=== PATIENT | female | born 1990 | race Hispanic/Latino ===

== ENCOUNTER 2018-11-13 21:07 | Day surgery (SDC) | payer OTHER ==
[2018-11-13 21:39] VITALS: BP 133/76; TEMP 98.7; BMI 33.2
--- NOTE | 2018-11-13 21:59 | PDOC.LDHP ---
Labor and Delivery H&P HPI: Patient of Dr Scott Known twins EGA 31 weeks 34 days CC: cramping Time: 2200 Location: Triage 27 yo x 1 in past with known twins, here for pelvic cramping. No real CTX [facility], no VB, no recent sex x 2 months. Good FM x 2. No recent trauma. Review of systems: complete ROS completed and as per HPI Current gestational age (weeks): 31 (3 days) Dating criteria: last menstrual period Grav: 2 Para: 1 OB History Details: x 1 in past with HX PIH, no HX PTB Current complications: other (Twins) Abnormal US findings: No Current medications: pre- vitamins Previous surgical history: none Allergies/Adverse Reactions: Allergies Allergy/AdvReac Type Severity Reaction Status Date / Time No Known Allergies Allergy Verified 03/17/13 13:12 - Physical Exam Vital signs reviewed and normal: yes (98.7 92 18 133/76) General: NAD Heart: RRR Lungs: CTAB Abdomen: gravid (Twins) FHT: category 1 (X2, 130-150s) [place] contractions every: irritability but no CTX - Assessment Twins at 31 weeks threatened PTL; no prior HX PTB or CS - Plan Plan: observation in L&D (I have ordered: 1. FFN 2. CX length 3. IVF hydration Dr Scott not available. Observe for now.)
[2018-11-13] MEDS ORDERED: Lactated Ringer's 500 ML IV SCH (22:15)
[2018-11-13 22:42] LABS: Fetal Fibronectin Negative (Negative)
[2018-11-13 22:43] LABS: FFN Internal QC Analyzer PASS (PASS); FFN Internal QC Cassette PASS (PASS)
--- NOTE | 2018-11-13 23:05 | PDOC.EVN ---
Event Note - Event Note Event Note: Follow up: CX length 3.5cm (vaginal) FFN was negative OK for outpatient care
--- NOTE | 2018-11-14 07:32 | ULT ---
TRANSVAGINAL PELVIC ULTRASOUND: INDICATION: Low abdominal pain, evaluation of cervical length. FINDINGS: Limited sonographic imaging performed to evaluate cervical length which reveals a cervix ranging betw een 3.5 and 4 cm in length. There is no sonographic evidence of funneling and the internal os mainta ins a closed morphology. IMPRESSION: Cervical length of a range of 3.5 to 4 cm. POS: NWK
== END 2018-11-13 23:44 | disposition home or self-care (01) ==
LOC: L&D/OP 21:07
PROVIDERS: ATTEND Obstetrics & Gynecology
DX: O99.89 Other specified diseases and conditions complicating pregnancy, childbirth and the puerperium (principal); R10.2 Pelvic and perineal pain; O30.003 Twin pregnancy, unspecified number of placenta and unspecified number of amniotic sacs, third trimester; Z3A.31 31 weeks gestation of pregnancy; Z79.899 Other long term (current) drug therapy
CPT/HCPCS: 82731; 96360; 96361; 99283

== ENCOUNTER 2018-12-15 11:52 | Inpatient (IN) | payer OTHER ==
[2018-12-15] MEDS ORDERED: Ondansetron PF 4 MG/2 ML Vial IVP PRN ×4 (12:56→22:58)
[2018-12-15] MEDS ORDERED: Promethazine HCl 25 MG/ML VIAL IM PRN ×4 (12:56→22:58)
[2018-12-15] MEDS ORDERED: CEFAZOLIN 2 GM in Premix Bag 1 BAG IVPB SCH (13:00)
[2018-12-15] MEDS ORDERED: Bicitra 30 ML UDCUP PO SCH (13:00)
--- NOTE | 2018-12-15 13:00 | PDOC.LDHP ---
Labor and Delivery H&P Chief complaint: contractions HPI: 27 y/o at 36 and 0/7 weeks, presents with DI/DI Twins in early labor. GBS neg. Cervix is 4+cm dilated. NPO x 7 hours now. U/S today shows VX/BR presentation. Will proceed to C/S later today. Current gestational age (weeks): 36 Due date: 01/12/19 (40w) Grav: 2 Para: 1 Current complications: di/di twins Abnormal US findings: No Current medications: pre-sherita vitamins Allergies/Adverse Reactions: Allergies Allergy/AdvReac Type Severity Reaction Status Date / Time No Known Allergies Allergy Verified 03/17/13 13:12 Social history: none - Physical Exam Vital signs reviewed and normal: yes General: NAD, resting, breathing through contractions Heart: RRR Lungs: nonlabored breathing Abdomen: gravid Extremeties: trace edema FHT: category 1 - Vaginal Exam cm dilated: 4 Effacement: 75% Station: -2 - Assessment DI/DI Twins in labor at 36 weeks - Plan Plan: admit to L&D, to OR for section
[2018-12-15 13:49] VITALS: BMI 37.8
[2018-12-15] MEDS: Lactated Ringer's 1,000 ML IV SCH ×2 (14:05→17:02)
[2018-12-15 15:16] LABS: Hemoglobin 10.8 g/dL (12.0-16.0); Mean Corpuscular HGB CONC 33.5 g/dL (32.0-36.0); Mean Corpuscular Hemoglobin 28.7 pg (27.0-31.0); Mean Corpuscular Volume 85.7 fL (78.0-98.0); Mean Platelet Volume 7.6 fL (7.4-10.4); Platelet Count 242 thou/uL (130-400); RBC Distribution Width 19.9 % (11.5-14.5); Red Blood Cell (RBC) Count 3.74 mill/uL (4.20-5.40); White Blood Cell (WBC) Count 5.8 thou/uL (4.8-10.8)
[2018-12-15 15:52] LABS: ALT (SGPT) 20 U/L (8-55); AST (SGOT) 19 U/L (5-34); Albumin 3.2 g/dL (3.5-5.0); Alkaline Phosphatase 481 U/L (40-150); Anion Gap 18 mmol/L (10-20); BUN (Urea Nitrogen) 10 mg/dL (7.0-18.7); Bilirubin, Total 0.4 mg/dL (0.2-1.2); Calc. Creatinine Clearance 199 mL/min (70-130); Calcium 9.1 mg/dL (7.8-10.44); Carbon Dioxide 20 mmol/L (22-29); Chloride 104 mmol/L (98-107); Estimated GFR-MDRD Greater than 90; Globulin 2.6 g/dL (2.4-3.5); Glucose 67 mg/dL (70-105); Potassium 4.5 mmol/L (3.5-5.1); Protein, Total 5.8 g/dL (6.0-8.3); Sodium 137 mmol/L (136-145)
[2018-12-15 15:53] LABS: Syphilis Antibody Nonreactive (Nonreactive); Syphilis Antibody Index 0.03 S/CO (<1.00 Non-Reactive)
[2018-12-15 15:54] LABS: HBSAg Index 0.33 S/CO (0-0.99); Hep B Surf Ag Non-Reactive S/CO (NonReactive)
[2018-12-15] MEDS ORDERED: MORPHINE 5 MG/10 ML PF VIAL ONE (19:29)
[2018-12-15] MEDS ORDERED: ePHEDrine/0.9% NaCl/PF SYRINGE 50 mg/10 ml ONE (19:29)
[2018-12-15] MEDS ORDERED: Oxytocin 10 UNITS/ML VIAL ONE (19:29)
[2018-12-15] MEDS ORDERED: Ondansetron PF 4 MG/2 ML Vial ONE (19:29)
[2018-12-15] MEDS ORDERED: Misoprostol 200 MCG TAB PR PRN (22:03)
[2018-12-15] MEDS ORDERED: diphenhydrAMINE 25 MG CAP PO PRN ×2 (22:03→22:58)
[2018-12-15] MEDS ORDERED: Bisacodyl 10 MG SUPP PR PRN ×2 (22:03→22:58)
[2018-12-15] MEDS ORDERED: Lanolin Ointment 7 GM TUBE TOP PRN ×2 (22:03→22:58)
[2018-12-15] MEDS ORDERED: HYDROcodone/Acetaminophen 5/325 mg Tablet PO PRN ×2 (22:03)
[2018-12-15] MEDS ORDERED: NS / Oxytocin 40 units/1000ml 1,000 ML IV SCH ×2 (22:15→22:58)
[2018-12-15] MEDS ORDERED: HYDROmorphone 2 MG/ML VIAL SLOW IVP PRN (22:16)
[2018-12-15] MEDS ORDERED: Meperidine HCl/PF 25 MG/ML VIAL SLOW IVP PRN (22:16)
[2018-12-15] MEDS ORDERED: Ondansetron HCl/PF 4 MG/2 ML Vial IVP PRN (22:16)
[2018-12-15] MEDS ORDERED: L&D-Morphine 4 MG/ML VIAL SLOW IVP PRN (22:16)
[2018-12-15] MEDS ORDERED: diphenhydrAMINE 50 MG/ML VIAL IVP PRN (22:17)
[2018-12-15] MEDS ORDERED: Naloxone HCl 0.4 mg/ml Vial IV PRN (22:17)
[2018-12-15] MEDS ORDERED: Promethazine HCl 25 MG SUPP PR PRN (22:17)
[2018-12-15] MEDS ORDERED: Naloxone HCl 0.4 mg/ml Vial IVP PRN ×2 (22:17)
[2018-12-15] MEDS ORDERED: Communication Order-Pharmacy FS SCH (22:30)
[2018-12-15] MEDS ORDERED: Ketorolac Tromethamine 30 MG/ML VIAL IVP SCH (22:30)
[2018-12-15] MEDS ORDERED: Lactated Ringer's 1,000 ML IV SCH (22:58)
[2018-12-15] MEDS ORDERED: Varicella virus, LIVE 0.5 ML VIAL SC ONE (22:58)
[2018-12-15] MEDS ORDERED: Measles/Mumps/Rubella 10 MCG/0.5 ML VIAL SC ONE (22:58)
[2018-12-15] MEDS ORDERED: Ibuprofen 800 MG TAB PO SCH (22:58)
[2018-12-15] MEDS ORDERED: Adacel (T-DAP) 0.5 ML SYRINGE IM ONE (22:58)
[2018-12-15] MEDS ORDERED: Zolpidem Tartrate 5 MG TAB PO PRN (22:58)
[2018-12-15] MEDS ORDERED: Docusate Calcium (SURFAK) 240 MG CAP PO SCH (23:15)
[2018-12-16] MEDS: Ketorolac Tromethamine 30 MG/ML VIAL IVP PRN ×2 (00:17→06:07)
[2018-12-16] MEDS ORDERED: Ibuprofen 800 MG TAB PO SCH (06:00)
[2018-12-16 06:15] LABS: Hemoglobin 9.9 g/dL (12.0-16.0); Mean Corpuscular Hemoglobin 28.3 pg (27.0-31.0); Mean Corpuscular Volume 85.5 fL (78.0-98.0); Mean Platelet Volume 7.4 fL (7.4-10.4); Platelet Count 211 thou/uL (130-400); RBC Distribution Width 19.8 % (11.5-14.5)
[2018-12-16] MEDS ORDERED: Docusate Calcium (SURFAK) 240 MG CAP PO SCH (09:00)
[2018-12-16] MEDS ORDERED: Prenatal Vitamin 1 TAB PO SCH (09:00)
[2018-12-16] MEDS ORDERED: Varicella virus, LIVE 0.5 ML VIAL SC ONE (09:00)
[2018-12-16] MEDS ORDERED: Adacel (T-DAP) 0.5 ML SYRINGE IM ONE (09:00)
[2018-12-16] MEDS ORDERED: Measles/Mumps/Rubella 10 MCG/0.5 ML VIAL SC ONE (09:00)
[2018-12-16] MEDS: Docusate Calcium (SURFAK) 240 MG CAP PO SCH ×2 (09:41→22:01)
[2018-12-16] MEDS: Simethicone Chewable 80 MG TAB PO PRN ×2 (09:41→22:01)
[2018-12-16] MEDS: Prenatal Vitamin 1 TAB PO SCH (09:41)
[2018-12-16] MEDS ORDERED: HYDROcodone/Acetaminophen 5/325 mg Tablet PO PRN ×3 (10:30)
[2018-12-16] MEDS: HYDROcodone/Acetaminophen 5/325 mg Tablet PO PRN ×2 (11:12→19:45)
[2018-12-16] MEDS: Ibuprofen 800 MG TAB PO SCH ×2 (14:23→22:01)
--- NOTE | 2018-12-16 15:23 | PDOC.PP ---
Post Progress Note Post Day #: 1 PO intake tolerated: yes Flatus: yes Ambulation: yes Vital Signs (12 hours) Temp Pulse Resp BP Pulse Ox 12/16/18 12:00 98.5 F 69 16 124/78 12/16/18 08:40 99 12/16/18 08:00 97.8 F 62 16 142/82 H 99 12/16/18 04:10 97.5 F L 65 18 153/73 H Weight Weight 187 lb - Physical Examination General: NAD Cardiovascular: no m/r/g Respiratory: clear to auscultation bilaterally, non-labored breathing Abdominal: + bowel sounds, lochia, no distention, appropriately TTP Extremities: negative homans (B) Skin: CS incision dry & intact, no rash Neurological: no gross focal deficits Psychiatric: A&Ox3, normal affect (BP is up a little, pain be pain/stress related. We will wacth closely for further elevation and other signs of post preeclampsia.) Result Diagrams: 12/16/18 05:54 12/15/18 14:07 Additional Labs: Post Labs Blood Type O POSITIVE 12/15/18 15:39 Hep Bs Antigen Non-Reactive S/CO (NonReactive) 12/15/18 14:07
[2018-12-17] MEDS: HYDROcodone/Acetaminophen 5/325 mg Tablet PO PRN ×5 (00:20→22:27)
[2018-12-17 02:34] LABS: Creatinine, Urine 30.59 mg/dL (47-110)
[2018-12-17] MEDS: Ibuprofen 800 MG TAB PO SCH ×3 (05:10→22:27)
[2018-12-17] MEDS ORDERED: Ibuprofen 800 MG TAB PO SCH (06:00)
[2018-12-17 06:46] LABS: ALT (SGPT) 17 U/L (8-55); AST (SGOT) 22 U/L (5-34); Albumin 2.5 g/dL (3.5-5.0); Alkaline Phosphatase 284 U/L (40-150); Anion Gap 13 mmol/L (10-20); BUN (Urea Nitrogen) 12 mg/dL (7.0-18.7); Bilirubin, Total 0.2 mg/dL (0.2-1.2); Calc. Creatinine Clearance 189 mL/min (70-130); Carbon Dioxide 22 mmol/L (22-29); Chloride 105 mmol/L (98-107); Estimated GFR-MDRD Greater than 90; Globulin 2.7 g/dL (2.4-3.5); Glucose 112 mg/dL (70-105); Potassium 3.7 mmol/L (3.5-5.1); Protein, Total 5.2 g/dL (6.0-8.3); Sodium 136 mmol/L (136-145)
[2018-12-17 06:51] LABS: #Basophils 0.1 thou/uL (0.0-0.2); #Eosinphils 0.1 thou/uL (0.0-0.7); #Monocytes 0.4 thou/uL (0.11-0.59); %Basophils 0.5 % (0.0-1.0); %Eosinophils 0.7 % (0.0-10.0); %Lymphocytes 18.6 % (21.0-51.0); %Neutrophils 76.2 % (42.0-75.0); Hemoglobin 9.2 g/dL (12.0-16.0); Mean Corpuscular HGB CONC 32.6 g/dL (32.0-36.0); Mean Corpuscular Hemoglobin 28.5 pg (27.0-31.0); Mean Corpuscular Volume 87.5 fL (78.0-98.0); Mean Platelet Volume 7.1 fL (7.4-10.4); Platelet Count 225 thou/uL (130-400); RBC Distribution Width 19.8 % (11.5-14.5); Red Blood Cell (RBC) Count 3.24 mill/uL (4.20-5.40); White Blood Cell (WBC) Count 10.5 thou/uL (4.8-10.8)
[2018-12-17] MEDS: Docusate Calcium (SURFAK) 240 MG CAP PO SCH ×2 (09:56→22:27)
[2018-12-17] MEDS: Prenatal Vitamin 1 TAB PO SCH (09:56)
--- NOTE | 2018-12-17 18:04 | PDOC.PP ---
Post Progress Note Post Day #: 2 PO intake tolerated: yes Flatus: yes Ambulation: yes Vital Signs (12 hours) Temp Pulse Resp BP Pulse Ox 12/17/18 16:15 98.0 F 92 20 136/84 12/17/18 12:50 97.7 F 64 18 133/70 12/17/18 08:55 97.9 F 74 16 125/80 99 Weight Weight 187 lb - Physical Examination General: NAD Cardiovascular: no m/r/g, RRR Respiratory: clear to auscultation bilaterally Abdominal: + bowel sounds, lochia, no distention, appropriately TTP Extremities: negative homans (B) Skin: CS incision dry & intact, no rash Neurological: no gross focal deficits Psychiatric: A&Ox3, normal affect (DC to home or boarding planned for tomorrow.) Result Diagrams: 12/17/18 06:07 12/17/18 06:07 Additional Labs: Post Labs Blood Type O POSITIVE 12/15/18 15:39 Hep Bs Antigen Non-Reactive S/CO (NonReactive) 12/15/18 14:07
[2018-12-17 23:32] VITALS: TEMP 98.2
[2018-12-18] MEDS: Ibuprofen 800 MG TAB PO SCH ×2 (07:16→14:32)
[2018-12-18 07:33] VITALS: BP 145/75
[2018-12-18] MEDS: Docusate Calcium (SURFAK) 240 MG CAP PO SCH (08:48)
[2018-12-18] MEDS: Prenatal Vitamin 1 TAB PO SCH (08:48)
== END 2018-12-18 15:30 | disposition home or self-care (01) | DRG 786 ==
LOC: L&D 11:52 → 3SW 23:11
PROVIDERS: ADMIT Obstetrics & Gynecology; ATTEND Obstetrics & Gynecology
PROC: 10D00Z1 Extraction of Products of Conception, Low, Open Approach (ICD-10-PCS; principal; 2018-12-15)
DX: O30.043 Twin pregnancy, dichorionic/diamniotic, third trimester (principal); O60.14X0 Preterm labor third trimester with preterm delivery third trimester, not applicable or unspecified; O32.1XX0 Maternal care for breech presentation, not applicable or unspecified; Z3A.36 36 weeks gestation of pregnancy; Z37.2 Twins, both liveborn
CPT/HCPCS: 36415; 51702; 80053; 82570; 84156; 85025; 85027; 86780; 86850; 86900; 86901; 87340; 88305; 88307; 90715; J0690; J1885; J2270; J2405; J2590